=== PATIENT | female | born 1975 | race African-American/Black ===

== ENCOUNTER 2017-06-20 00:49 | Emergency (ER) | payer OTHER ==
[~2017-06-20] VITALS: Ht 170.2 cm; Wt 68.0 kg
[~2017-06-20 00:49] MED LIST: NOCURR
[2017-06-20 00:53] VITALS: BP 161/98
== END 2017-06-20 02:48 | disposition left against medical advice (07) ==
LOC: EMS 00:50
DX: R44.0 Auditory hallucinations (principal); F17.210 Nicotine dependence, cigarettes, uncomplicated; F11.90 Opioid use, unspecified, uncomplicated; Z53.21 Procedure and treatment not carried out due to patient leaving prior to being seen by health care provider

== ENCOUNTER 2018-06-15 21:23 | Emergency (ER) | payer OTHER ==
[~2018-06-15] VITALS: Ht 170.2 cm; Wt 61.4 kg
[2018-06-15 21:41] VITALS: BP 139/91
[2018-06-15] MEDS ORDERED: METH10SO PO (21:49)
[2018-06-15 22:21] LABS: BASOPHILS % (AUTO) 0.4 % (0.0-2.0); EOSINOPHILS % (AUTO) 1.1 % (1.0-6.0); HEMATOCRIT 29.8 % (36-46); LYMPHOCYTES # (AUTO) 3.2 K/uL (1.0-4.8); LYMPHOCYTES % (AUTO) 38.5 % (22.0-44.0); MEAN CORPUSCULAR HGB CONC 33.5 G/dL (31.0-37.0); MEAN CORPUSCULAR VOLUME 92 fL (80-100); MONOCYTES # (AUTO) 0.4 K/uL (0.1-1.0); MONOCYTES % (AUTO) 4.7 % (2.0-9.0); NEUTROPHILS # (AUTO) 4.6 K/uL (1.8-7.7); NEUTROPHILS % (AUTO) 55.3 % (40.0-70.0); PLATELET COUNT (AUTO) 456 K/uL (150-450); RED BLOOD CELL COUNT(AUTO) 3.23 MIL/uL (4.00-5.20); RED CELL DISTRIBUTION WIDTH 13.9 % (11.5-14.5)
[2018-06-15 22:34] LABS: ANION GAP 7 mmol/L (8-16); CALCIUM, TOTAL 8.7 mg/dL (8.8-10.5); CARBON DIOXIDE 31 mmol/L (22-29); CHLORIDE 101 mmol/L (98-107); CREATININE 0.74 mg/dL (0.60-1.30); GLOMERULAR FILTR. RATE CALC > 60 mL/min (>60); GLUCOSE,RANDOM 94 mg/dL (70-110); SODIUM SERUM 139 mmol/L (136-145); UREA NITROGEN, BLOOD 11 mg/dL (7-18)
[2018-06-15 22:47] LABS: ALANINE AMINOTRANSFERASE 17 U/L (12-78); ALKALINE PHOSPHATASE 149 U/L (46-116); ASPARTATE AMINOTRANSFERASE 9 U/L (15-37); BILIRUBIN,TOTAL 0.2 mg/dL (0.1-1.0); HCG,QUANTITATIVE < 1 mIU/mL (0-6); TOTAL PROTEIN, SERUM 7.9 g/dL (6.4-8.2)
== END 2018-06-16 00:48 | disposition left against medical advice (07) ==
LOC: EMS 21:25
DX: R44.0 Auditory hallucinations (principal); D64.9 Anemia, unspecified; F11.90 Opioid use, unspecified, uncomplicated; F12.90 Cannabis use, unspecified, uncomplicated; F17.210 Nicotine dependence, cigarettes, uncomplicated
CPT/HCPCS: 36415; 80053; 84702; 85025; 99283; G0480

== ENCOUNTER 2018-08-18 10:57 | Emergency (ER) | payer OTHER ==
[~2018-08-18] VITALS: Ht 170.2 cm; Wt 68.2 kg
[~2018-08-18 10:57] MED LIST changes: +METH10SO PO; -NOCURR
[2018-08-18 11:45] VITALS: BP 156/85
== END 2018-08-18 11:56 | disposition home or self-care (01) ==
LOC: EMS 10:58
DX: L21.9 Seborrheic dermatitis, unspecified (principal); F17.210 Nicotine dependence, cigarettes, uncomplicated; F12.90 Cannabis use, unspecified, uncomplicated; F11.90 Opioid use, unspecified, uncomplicated; Z98.51 Tubal ligation status
CPT/HCPCS: 99406

== ENCOUNTER 2018-11-17 02:54 | Emergency (ER) | payer OTHER ==
[~2018-11-17] VITALS: Ht 165.1 cm; Wt 60.9 kg
[2018-11-17 04:44] VITALS: BP 134/92
== END 2018-11-17 04:48 | disposition home or self-care (01) ==
LOC: EMS 02:56
DX: F32.9 Major depressive disorder, single episode, unspecified (principal); F11.10 Opioid abuse, uncomplicated; F17.210 Nicotine dependence, cigarettes, uncomplicated; F12.90 Cannabis use, unspecified, uncomplicated; Z98.51 Tubal ligation status
CPT/HCPCS: 99406

== ENCOUNTER 2021-04-04 02:09 | Emergency (ER) | payer OTHER ==
[~2021-04-04] VITALS: Ht 170.2 cm; Wt 72.7 kg
[2021-04-04] MEDS ORDERED: OLANZapine 5 MG TABLET PO ONE (03:30)
[2021-04-04 03:32] VITALS: BP 130/80
[2021-04-04 03:36] LABS: BASOPHILS % (AUTO) 0.1 % (0.0-2.0); EOSINOPHILS % (AUTO) 0.3 % (1.0-6.0); HEMOGLOBIN 9.7 g/dL (12.0-16.0); LYMPHOCYTES # (AUTO) 2.4 K/uL (1.0-4.8); LYMPHOCYTES % (AUTO) 21.4 % (22.0-44.0); MEAN CORPUSCULAR HEMOGLOBIN 29.1 pg (26.0-34.0); MEAN CORPUSCULAR HGB CONC 32.2 G/dL (31.0-37.0); MEAN CORPUSCULAR VOLUME 90 fL (80-100); MONOCYTES # (AUTO) 0.5 K/uL (0.1-1.0); MONOCYTES % (AUTO) 4.8 % (2.0-9.0); NEUTROPHILS # (AUTO) 8.4 K/uL (1.8-7.7); NEUTROPHILS % (AUTO) 73.4 % (40.0-70.0); PLATELET COUNT (AUTO) 460 K/uL (150-450); RED BLOOD CELL COUNT(AUTO) 3.32 MIL/uL (4.00-5.20); RED CELL DISTRIBUTION WIDTH 14.9 % (11.5-14.5)
[2021-04-04 03:44] LABS: ANION GAP 7 mmol/L (8-16); CARBON DIOXIDE 29 mmol/L (22-29); CHLORIDE 107 mmol/L (98-107); CREATININE 0.99 mg/dL (0.60-1.30); GLOMERULAR FILTR. RATE CALC > 60 mL/min (>60); GLUCOSE,RANDOM 99 mg/dL (70-110); POTASSIUM 3.4 mmol/L (3.5-5.1); SODIUM SERUM 143 mmol/L (136-145); UREA NITROGEN, BLOOD 9 mg/dL (7-18)
[2021-04-04 03:44] LABS: AMPHET/METH SCREEN,URINE POSITIVE (NEGATIVE); BARBITURATE SCREEN, URINE NEGATIVE (NEGATIVE); BENZODIAZEPINES SCREEN,URINE NEGATIVE (NEGATIVE); CANNABINOID SCREEN,URINE POSITIVE (NEGATIVE); COCAINE SCREEN,URINE NEGATIVE (NEGATIVE); METHADONE SCREEN, URINE POSITIVE (NEGATIVE); OPIATE SCREEN,URINE POSITIVE (NEGATIVE)
[2021-04-04 03:45] LABS: APPEARANCE,URINE CLOUDY (CLEAR); BILIRUBIN,URINE NEGATIVE (NEGATIVE); GLUCOSE, URINE (UA) NEGATIVE (NEGATIVE); KETONES,URINE NEGATIVE (NEGATIVE); LEUKOCYTE ESTERASE ,URINE MODERATE (NEGATIVE); NITRATE,URINE POSITIVE (NEGATIVE); OCCULT BLOOD,URINE SMALL (NEGATIVE); PH,URINE 5.5 (5.0-8.0); PROTEIN,URINE POS 1+ (NEGATIVE); UROBILINOGEN,URINE 0.2 mg/dL (<=1.0)
[2021-04-04 03:50] LABS: PHENCYCLIDINE SCREEN,URINE NEGATIVE (NEGATIVE)
[2021-04-04 03:52] LABS: ALANINE AMINOTRANSFERASE 18 U/L (12-78); ALBUMIN 3.1 g/dL (3.4-5.0); ALKALINE PHOSPHATASE 150 U/L (46-116); ASPARTATE AMINOTRANSFERASE 12 U/L (15-37); BILIRUBIN,TOTAL 0.2 mg/dL (0.1-1.0)
[2021-04-04 03:54] LABS: BACTERIA,URINE Many /HPF (None Seen); RBC,URINE 26-50 /HPF (0-2); WBC,URINE 51-100 /HPF (0-5)
[2021-04-04 03:55] LABS: SQUAMOUS EPITHELIAL CELL,UR Moderate /LPF (None Seen)
== END 2021-04-04 04:00 | disposition home or self-care (01) ==
LOC: EMS 02:10
DX: H60.92 Unspecified otitis externa, left ear (principal); F22 Delusional disorders; F11.90 Opioid use, unspecified, uncomplicated; F12.90 Cannabis use, unspecified, uncomplicated; F17.210 Nicotine dependence, cigarettes, uncomplicated
CPT/HCPCS: 36415; 80053; 80307; 81001; 85025; 87077; 87086; 87186; 99283; G0480

== ENCOUNTER 2021-06-28 11:57 | Emergency (ER) | payer OTHER ==
[~2021-06-28] VITALS: Ht 165.1 cm; Wt 77.3 kg
[2021-06-28 14:27] LABS: BASOPHILS % (AUTO) 0.2 % (0.0-2.0); EOSINOPHILS % (AUTO) 1.7 % (1.0-6.0); HEMATOCRIT 27.6 % (36-46); LYMPHOCYTES % (AUTO) 8.8 % (22.0-44.0); MEAN CORPUSCULAR HEMOGLOBIN 28.6 pg (26.0-34.0); MEAN CORPUSCULAR HGB CONC 32.4 G/dL (31.0-37.0); MEAN CORPUSCULAR VOLUME 88 fL (80-100); MONOCYTES # (AUTO) 0.4 K/uL (0.1-1.0); MONOCYTES % (AUTO) 3.1 % (2.0-9.0); NEUTROPHILS # (AUTO) 10.2 K/uL (1.8-7.7); NEUTROPHILS % (AUTO) 86.2 % (40.0-70.0); PLATELET COUNT (AUTO) 554 K/uL (150-450); RED BLOOD CELL COUNT(AUTO) 3.13 MIL/uL (4.00-5.20); RED CELL DISTRIBUTION WIDTH 16.7 % (11.5-14.5)
[2021-06-28 14:39] LABS: ANION GAP 8 mmol/L (8-16); CALCIUM, TOTAL 9.1 mg/dL (8.8-10.5); CARBON DIOXIDE 29 mmol/L (22-29); CHLORIDE 102 mmol/L (98-107); CREATININE 0.95 mg/dL (0.60-1.30); GLOMERULAR FILTR. RATE CALC > 60 mL/min (>60); GLUCOSE,RANDOM 102 mg/dL (70-110); POTASSIUM 3.7 mmol/L (3.5-5.1); SODIUM SERUM 139 mmol/L (136-145); UREA NITROGEN, BLOOD 8 mg/dL (7-18)
[2021-06-28 14:50] LABS: B-TYPE NATRIURETIC PEPTIDE 14 pg/mL (0-100)
[2021-06-28 14:52] LABS: ALANINE AMINOTRANSFERASE 20 U/L (12-78); ALBUMIN 2.7 g/dL (3.4-5.0); ALKALINE PHOSPHATASE 118 U/L (46-116); ASPARTATE AMINOTRANSFERASE 46 U/L (15-37); BILIRUBIN,TOTAL 0.2 mg/dL (0.1-1.0); HCG,QUANTITATIVE < 1 mIU/mL (0-6); TOTAL PROTEIN, SERUM 8.2 g/dL (6.4-8.2)
[2021-06-28 16:09] VITALS: BP 130/73
== END 2021-06-28 16:11 | disposition home or self-care (01) ==
LOC: EMS 12:01
DX: R60.0 Localized edema (principal); M79.89 Other specified soft tissue disorders; F17.210 Nicotine dependence, cigarettes, uncomplicated; F12.90 Cannabis use, unspecified, uncomplicated; F19.90 Other psychoactive substance use, unspecified, uncomplicated; F11.90 Opioid use, unspecified, uncomplicated
CPT/HCPCS: 80053; 83880; 84702; 85025; 93970; 99284

== ENCOUNTER 2022-06-14 05:44 | Emergency (ER) | payer OTHER ==
[~2022-06-14] VITALS: Ht 165.1 cm; Wt 72.0 kg
[2022-06-14 05:57] VITALS: BP 127/76
[2022-06-14] MEDS ORDERED: DIPH25CA85 PO (07:23)
== END 2022-06-14 07:33 | disposition home or self-care (01) ==
LOC: EMS 05:44
DX: L29.9 Pruritus, unspecified (principal); K75.9 Inflammatory liver disease, unspecified; Z98.890 Other specified postprocedural states; F17.210 Nicotine dependence, cigarettes, uncomplicated; F11.90 Opioid use, unspecified, uncomplicated; Z98.51 Tubal ligation status
CPT/HCPCS: 99282; Z7502

== ENCOUNTER 2022-08-03 14:50 | Emergency (ER) | payer OTHER ==
[~2022-08-03] VITALS: Ht 170.2 cm; Wt 65.9 kg
[~2022-08-03 14:50] MED LIST changes: +DIPH25CA85 PO; -METH10SO PO
[2022-08-03 14:58] VITALS: BP 144/95
[2022-08-03] MEDS ORDERED: PERM60CR19 TP (16:21)
[2022-08-03] MEDS ORDERED: DIPH50 PO (16:21)
== END 2022-08-03 16:35 | disposition home or self-care (01) ==
LOC: EMS 14:53
DX: B86 Scabies (principal); F17.210 Nicotine dependence, cigarettes, uncomplicated; F11.90 Opioid use, unspecified, uncomplicated; Z98.51 Tubal ligation status; Z98.890 Other specified postprocedural states
CPT/HCPCS: 99282; Z7502

== ENCOUNTER 2024-01-14 19:02 | Emergency (ER) | payer OTHER ==
[~2024-01-14] VITALS: Ht 170.2 cm; Wt 61.3 kg
[~2024-01-14 19:02] MED LIST changes: -DIPH25CA85 PO; +DIPH50 PO; +PERM60CR19 TP
[2024-01-14 19:26] VITALS: BP 148/81; PULSE 90; RESP 16; TEMP 98
== END 2024-01-14 23:25 | disposition left against medical advice (07) ==
LOC: EMS 19:07
DX: T40.411A Poisoning by fentanyl or fentanyl analogs, accidental (unintentional), initial encounter (principal); Z53.21 Procedure and treatment not carried out due to patient leaving prior to being seen by health care provider; Y92.89 Other specified places as the place of occurrence of the external cause

== ENCOUNTER 2024-08-31 16:16 | Emergency (ER) | payer OTHER ==
[~2024-08-31] VITALS: Ht 160 cm; Wt 54.5 kg
[~2024-08-31 16:16] MED LIST changes: -PERM60CR19 TP; +PERM60CR27 TP
[2024-08-31 16:30] VITALS: BP 128/86; PULSE 98; RESP 18; TEMP 98.2; O2SAT 99
[2024-08-31 16:47] LABS: COVID AG,FIA SOURCE NASAL SWAB
[2024-08-31 17:10] LABS: INFLUENZA TYPE A NEGATIVE FOR TYPE A (NEGATIVE); INFLUENZA TYPE B NEGATIVE FOR TYPE B (NEGATIVE); SARS-COV2 (COVID) ANTIGEN,FIA Negative (Negative)
[2024-08-31] MEDS ORDERED: DOXY-354 PO (18:12)
[2024-08-31] MEDS ORDERED: CEPH-558 PO (18:12)
[2024-08-31] MEDS ORDERED: ACET-66 PO (18:12)
[2024-08-31] MEDS ORDERED: GUAIFDM PO (18:12)
== END 2024-08-31 18:21 | disposition home or self-care (01) ==
LOC: EMS 16:16
DX: J20.9 Acute bronchitis, unspecified (principal); L02.92 Furuncle, unspecified; F17.210 Nicotine dependence, cigarettes, uncomplicated; Z20.822 Contact with and (suspected) exposure to COVID-19; Z98.51 Tubal ligation status; Z86.19 Personal history of other infectious and parasitic diseases; Z59.00 Homelessness unspecified
CPT/HCPCS: 87804; 99283

== ENCOUNTER 2024-10-19 17:43 | Emergency (ER) | payer OTHER ==
[~2024-10-19] VITALS: Ht 170.2 cm; Wt 65.9 kg
[~2024-10-19 17:43] MED LIST changes: +ACET-66 PO; +CEPH-558 PO; +DOXY-354 PO; +GUAIFDM PO
[2024-10-19 17:52] VITALS: TEMP 98.2
[2024-10-19 18:41] VITALS: BP 134/74; PULSE 98; RESP 18; O2SAT 96
[2024-10-19 19:01] LABS: BASOPHILS % (AUTO) 0.4 % (0.0-2.0); EOSINOPHILS % (AUTO) 1.7 % (1.0-6.0); HEMATOCRIT 33.1 % (36-46); HEMOGLOBIN 10.9 g/dL (12.0-16.0); LYMPHOCYTES # (AUTO) 3.3 K/uL (1.0-4.8); LYMPHOCYTES % (AUTO) 47.5 % (22.0-44.0); MEAN CORPUSCULAR VOLUME 94 fL (80-100); MONOCYTES # (AUTO) 0.4 K/uL (0.1-1.0); NEUTROPHILS # (AUTO) 3.1 K/uL (1.8-7.7); NEUTROPHILS % (AUTO) 44.4 % (40.0-70.0); PLATELET COUNT (AUTO) 388 K/uL (150-450); RED BLOOD CELL COUNT(AUTO) 3.51 MIL/uL (4.00-5.20); RED CELL DISTRIBUTION WIDTH 13.6 % (11.5-14.5); WHITE BLOOD COUNT (AUTO) 6.9 K/uL (4.5-11.0)
[2024-10-19 19:11] LABS: ANION GAP 5 mmol/L (8-16); CALCIUM, TOTAL 9.1 mg/dL (8.8-10.5); CARBON DIOXIDE 33 mmol/L (22-29); CHLORIDE 103 mmol/L (98-107); CREATININE 0.79 mg/dL (0.60-1.30); GLOMERULAR FILTR. RATE CALC > 60 mL/min (>60); GLUCOSE,RANDOM 83 mg/dL (70-110); POTASSIUM 3.4 mmol/L (3.5-5.1); SODIUM SERUM 141 mmol/L (136-145); UREA NITROGEN, BLOOD 13 mg/dL (7-18)
[2024-10-19 19:15] LABS: APPEARANCE,URINE HAZY (CLEAR); BILIRUBIN,URINE NEGATIVE (NEGATIVE); COLOR,URINE YELLOW (YELLOW); GLUCOSE, URINE (UA) NEGATIVE (NEGATIVE); KETONES,URINE NEGATIVE (NEGATIVE); LEUKOCYTE ESTERASE ,URINE LARGE (NEGATIVE); NITRATE,URINE POSITIVE (NEGATIVE); OCCULT BLOOD,URINE LARGE (NEGATIVE); PH,URINE 5.5 (5.0-8.0); PH,URINE DRUG SCREEN 5.5 (5.0-8.0); PROTEIN,URINE TRACE mg/dL (NEGATIVE); SPECIFIC GRAVITIY, URINE 1.019 (1.003-1.030); UROBILINOGEN,URINE <=1.0 mg/dL (<=1.0)
[2024-10-19 19:21] LABS: ALCOHOL, URINE DRUG SCREEN NEGATIVE (NEGATIVE); AMPHET/METH SCREEN,URINE POSITIVE (NEGATIVE); BARBITURATE SCREEN, URINE NEGATIVE (NEGATIVE); BENZODIAZEPINES SCREEN,URINE NEGATIVE (NEGATIVE); CANNABINOID SCREEN,URINE NEGATIVE (NEGATIVE); COCAINE SCREEN,URINE NEGATIVE (NEGATIVE); METHADONE SCREEN, URINE NEGATIVE (NEGATIVE); OPIATE SCREEN,URINE NEGATIVE (NEGATIVE); PHENCYCLIDINE SCREEN,URINE NEGATIVE (NEGATIVE)
[2024-10-19 19:33] LABS: BACTERIA,URINE Many /HPF (None Seen); SQUAMOUS EPITHELIAL CELL,UR Few /LPF (None Seen); WBC,URINE 26-50 /HPF (0-5)
== END 2024-10-19 19:28 | disposition left against medical advice (07) ==
LOC: EMS 17:45
DX: T40.412A Poisoning by fentanyl or fentanyl analogs, intentional self-harm, initial encounter (principal); Z98.51 Tubal ligation status; Z86.19 Personal history of other infectious and parasitic diseases; Y92.89 Other specified places as the place of occurrence of the external cause
CPT/HCPCS: 80048; 80307; 81001; 85025; 87086; 99283